=== PATIENT | female | born 1950 | race American Indian/Alaskan Native ===

== ENCOUNTER 2017-02-28 09:00 | Day surgery (SDC) | payer MEDICARE ==
[2017-02-28] MEDS ORDERED: DIPRIVAN 10 MG/ML IV ONE ×2 (09:16)
--- NOTE | 2017-02-28 09:48 | Short Stay Summary ---
Short Stay Documentation Date of service: 02/28/17 Narrative H&P: 67 year old presents for colonoscopy for colon screening. She has a history of polyps 2006 (new information not provided at office visit.) - History Principal diagnosis: colon screening, history of polyps Past Medical History: COPD, hypertension, renal failure Past Surgical History: hysterectomy, Other (colonoscopy) Social history: other (current alcohol, former tobacco) - Allergies and Medications Current Medications: Allergies No Known Allergies Allergy (Verified 02/28/17 09:13) Active Medications Sodium Chloride (Nacl 0.9% 1000 Ml) 1,000 mls @ 50 mls/hr IV DIRECT ELSY - Physical exam General appearance: no acute distress, well-nourished HEENT: PERRLA, EOMI Lungs: Clear to auscultation Heart: Regular rate, Normal S1, Normal S2 Gastrointestinal: normal Neurological: Normal speech - Hospital course Hospital course: Uneventful colonoscopy. - Disposition Condition at discharge: Good Disposition: [id number] TO HOME OR SELFCARE - Discharge Diagnoses (1) Colon polyp Status: Acute (2) Diverticulosis Status: Acute (3) Internal hemorrhoids Status: Acute (4) Personal history of colonic polyps Status: Acute Short Stay Discharge Plan Activity: other (no driving today) Diet: other (resume usual diet) Additional Instructions: 1. Patient to call for pathology results. 2. Inform first-degree relatives (siblings and children) that polyps run in the family and to begin their colon screening at age 40 rather than age 48. 3. Repeat colonoscopy in 5 years. Follow up with: KANIKA DUPONT MD [Primary Care Provider] - 7 Days
[2017-02-28] MEDS ORDERED: NACL 0.9% 1000 ML 1,000 ML IV SCH (10:00)
--- NOTE | 2017-02-28 10:19 | Anesthesia Consultation ---
Anesthesia Consult and Med Hx Date of service: 02/28/17 - Airway Anesthetic Teeth Evaluation: Dentures (upper and lower) ROM Head & Neck: Adequate Mental/Hyoid Distance: Adequate Mallampati Class: Class III Intubation Access Assessment: Probably Good - Pulmonary Exam CTA: Yes - Cardiac Exam Cardiac Exam: RRR - Pre-Operative Health Status ASA Pre-Surgery Classification: ASA3 Proposed Anesthetic Plan: MAC - Pulmonary Hx Smoking: Yes (quit 15 years ago) COPD: Yes Home Oxygen Therapy: Yes (2.5 L/m) - Cardiovascular System Hx Hypertension: Yes Hx Heart Attack/AMI: No - Central Nervous System Hx Seizures: No CVA: No - Endocrine Hx Renal Disease: Yes (CKD, L Kidney removed) Hx End Stage Renal Disease: No Hx Non-Insulin Dependent Diabetes: No (prediabetic) - Other Systems Hx Obesity: Yes - Additional Comments Anesthesia Medical History Comments: NAC
--- NOTE | 2017-02-28 10:20 | Anesthesia Day of Surgery ---
Anesthesia Day of Surgery - Day of Surgery Patient Examined: Yes Patient H&P Reviewed: Yes Patient is NPO: Yes Beta Blockers: Yes
--- NOTE | 2017-02-28 10:56 | Operative Report ---
Operative Report Operative Report: Date of procedure: 02/28/2017 Preprocedure diagnosis: High-risk colon screening by virtue of personal history of colon polyps Post procedure diagnosis: Polyp, diverticulosis, internal and external hemorrhoids Procedure name(s): Colonoscopy with snare polypectomy Surgeon: Ketan Nichole MD Anesthesia: Monitored anesthesia care EBL: None Procedure: The indications, techniques, potential complications and alternatives , had been discussed in full detail prior to the date of the exam, and once again on the day of the exam. Questions were encouraged and answered, and consent was thereby obtained. The patient was placed in the left lateral decubitus position, and was medicated by anesthesia services. See the anesthesia records for details. The anal sphincter was digitally dilated. Large external hemorrhoids were noted. The tip of a Intelligent[employer] video colonoscope was inserted through the anal sphincter and into the rectal vault. It was then advanced proximally under continuous visualization of the lumen to the cecum without difficulty. Abdominal compression was employed to minimize loop formation and thereby facilitate instrument advancement. The prep was adequate. Lavage was employed as needed. No pathology was seen in the cecum. The appendiceal orifice and ileocecal valve appeared normal. From the cecum, the instrument was slowly withdrawn, with careful circumferential examination of the colonic mucosa. No pathology was found in the ascending colon or hepatic flexure. A 6-7 mm sessile polyp was excised from the distal transverse colon with a cold snare and retrieved. No bleeding was precipitated. The remainder the transverse colon appeared normal as did the splenic flexure and descending colon. Mild diverticulosis was noted in the sigmoid. No additional polyps were seen. The rectum appeared normal from the forward view. Retroflexion in the rectum revealed nonbleeding internal hemorrhoids. The instrument was straightened and withdrawn. The procedure was very well tolerated. Seizure she was monitored in the recovery area of the GI lab to ensure stability prior to her release. See the outpatient record for details regarding instructions to patient, medications and plans for follow-up. Family screening has been discussed. Final diagnosis: 1. Sessile polyp, 6-7 mm, distal transverse colon 2. Sigmoid diverticulosis 3. Internal and external hemorrhoids Colon screening information: Previous colonoscopy 2006, neck [place] colonoscopy in 5 years. Ketan Nichole M.D. Dictated 02/28/2017 at 10:54 AM
[2017-02-28 10:59] VITALS: BP 117/76
--- NOTE | 2017-02-28 14:58 | Post Anesthesia Evaluation ---
- Post Anesthesia Evaluation Patient Participated: Yes Airway Patent: Yes Stable Respiratory Function: Yes Nausea/Vomiting: No Temp > 96.8F: Yes Pain Manageable: Yes Adequeate Hydration: Yes Anesthesia Complications: No Block Receding Appropriately: Not Applicable Patient on Ventilator: No
== END 2017-02-28 09:01 | disposition home or self-care (01) ==
LOC: GIO 09:00
PROVIDERS: ATTEND Internal Medicine Gastroenterology
DX: Z86.010 Personal history of colon polyps (principal); D12.3 Benign neoplasm of transverse colon; K57.30 Diverticulosis of large intestine without perforation or abscess without bleeding; K64.4 Residual hemorrhoidal skin tags; K64.8 Other hemorrhoids; J44.9 Chronic obstructive pulmonary disease, unspecified; I12.9 Hypertensive chronic kidney disease with stage 1 through stage 4 chronic kidney disease, or unspecified chronic kidney disease; N18.6 End stage renal disease; E66.9 Obesity, unspecified; Z68.34 Body mass index [BMI] 34.0-34.9, adult; Z90.710 Acquired absence of both cervix and uterus; Z87.891 Personal history of nicotine dependence; Z98.890 Other specified postprocedural states; Z99.81 Dependence on supplemental oxygen; Z90.5 Acquired absence of kidney; Z88.2 Allergy status to sulfonamides
CPT/HCPCS: 45385; 82962; 88305; J2704; J7030